=== PATIENT | male | born 2000 | race African-American/Black ===

== ENCOUNTER 2021-09-30 11:08 | Emergency (ER) | payer MEDICAID ==
[~2021-09-30] VITALS: Ht 190.5 cm; Wt 71.0 kg
[2021-09-30 11:28] VITALS: BP 118/67
[2021-09-30] MEDS ORDERED: LIDOCAINE HCL 1% 20ML VIAL (Pyxis) INJ INFIL ONE (11:45)
[2021-09-30] MEDS ORDERED: CEFTRIAXONE SODIUM 500 MG/VIAL IM ONE (11:45)
[2021-09-30 13:14] LABS: CLARITY URINE CLOUDY (CLEAR); COLOR URINE DARK YELLOW (YELLOW); KETONES URINE TRACE (NEGATIVE); LEUKOCYTE ESTERASE URINE 3+ (NEGATIVE); NITRITE URINE NEGATIVE (NEGATIVE); OCCULT BLOOD URINE NEGATIVE (NEGATIVE); PROTEIN URINE 2+ (NEGATIVE); SPECIFIC GRAVITY URINE 1.034 (1.005-1.030)
[2021-09-30] MEDS ORDERED: DOXY100C5 MT (13:24)
[2021-10-05 04:08] LABS: NEISSERIA GONORRHOEAE NAA Positive (Negative)
== END 2021-09-30 14:01 | disposition home or self-care (01) ==
LOC: ER 11:08
DX: N34.2 Other urethritis (principal); Z20.2 Contact with and (suspected) exposure to infections with a predominantly sexual mode of transmission; Z72.51 High risk heterosexual behavior
CPT/HCPCS: 81003; 87086; 87491; 87591; 96372; 99283; J0696; J3490